=== PATIENT | female | born 1970 | race Asian ===

== ENCOUNTER 2017-07-19 17:16 | Emergency (ER) | payer OTHER ==
[~2017-07-19] VITALS: Ht 157.5 cm; Wt 92.0 kg
[~2017-07-19 17:16] MED LIST: ADULT SUPPOSIT1 EACH PR; BUSPAR5 MG PO; LOPERAMIDE2 MG PO; OXCARBAZEPINE600 MG PO; RISPERIDONE1 MG PO; ROBITUSSIN DM118 ML PO; TUMS500 MG PO; TYLENOL REGULA325 MG PO
[2017-07-19 18:09] LABS: MCH 32.3 PG (29.0-34.0); MCHC 32.3 G/DL (30.0-36.0); MEAN PLAT.VOLUME 10.7 uM^3 (9.5-12.4); PLATELET COUNT 212 K/uL (156-360); RBC DIS.WIDTH-CV 12.4 % (11.8-14.6); RBC DIS.WIDTH-SD 45.7 % (39-53)
[2017-07-19 18:25] LABS: CHLORIDE 109 mEq/L (99-109); POTASSIUM 4.3 mEq/L (3.7-5.4); SODIUM 141 mEq/L (136-147)
[2017-07-19 18:27] LABS: GLUCOSE 98 mg/dL (70-99)
[2017-07-19 18:28] LABS: ANION GAP 7 MEQ/L (2-14)
[2017-07-19 18:29] LABS: TOTAL BILIRUBIN 0.5 mg/dL (0.0-1.0)
[2017-07-19 18:31] LABS: ALKALINE PHOSPHATASE 52 IU/L (3-129); GFR ESTIMATE (CALCULATED) 47 mL/min/
[2017-07-19 18:32] LABS: UREA NITROGEN (BUN) 17 mg/dL (9-23)
[2017-07-19] MEDS ORDERED: PREDNISONE20 MG PO (22:08)
[2017-07-19] MEDS ORDERED: BENADRYL50 MG PO (22:08)
[2017-07-19] MEDS ORDERED: PEPCID20 MG PO (22:08)
[2017-07-19 22:24] VITALS: BP 106/73
== END 2017-07-19 22:23 | disposition home or self-care (01) ==
LOC: EME 17:16
PROVIDERS: Emergency Medicine
DX: T78.3XXA Angioneurotic edema, initial encounter (principal); T43.595A Adverse effect of other antipsychotics and neuroleptics, initial encounter; K21.9 Gastro-esophageal reflux disease without esophagitis
CPT/HCPCS: 80053; 80178; 85027; 99281; 99284; J7512